=== PATIENT | male | born 2000 | race Caucasian/White ===

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

== ENCOUNTER → 2021-07-29 | Outpatient (CLI) | payer OTHER ==
[~2021-07-29] MED LIST: CEPH500 PO
== END | disposition home or self-care (01) ==
LOC: LAB SHORT 09:50 → LAB 09:50
DX: B35.6 Tinea cruris (principal); B36.0 Pityriasis versicolor
CPT/HCPCS: 87070; 87077; 87147; 87186; 87205